=== PATIENT | male | born 1955 | race Caucasian/White ===

== ENCOUNTER → 2017-05-30 | Day surgery (SDC) | payer OTHER ==
[~2017-05-30] VITALS: Ht 172.7 cm; Wt 84.1 kg
[~2017-05-30] MED LIST: ACETAMINOPHEN/HYDROcodone 325 MG/5 MG TAB PO PRN; ALEV220T14 PO; ARTHRITIS MED PO; BUPIVACAINE/EPINEPHRINE 0.25% PF 10 ML VIAL INFIL ONE; CHLORHEXIDINE GLUCONATE 2 % 1 PACK (2 CLOTHS) TOPICAL PRN; CHLORHEXIDINE GLUCONATE 4% SOLN 120 ML BTL TOPICAL SCH; KETOROLAC TROMETHAMINE 60 MG/2 ML (IM) VIAL IM PRN; LACTATED RINGER'S 1000 ML IV PRN; METOPROLOL TARTRATE 25 MG TAB PO PRN; MIDAZOLAM HCL 2 MG/2 ML VIAL ONE; ONDANSETRON HCL 4 MG/2 ML VIAL IV PRN; POVIDONE IODINE 5% (ANTISEPSIS KIT) 4 APPLICATIONS EACH NARE PRN; SODIUM CHLORID 0.9% 500 ML IV PRN; TRIAMCINOLONE ACETONIDE 40 MG/ML VIAL ONE
[2017-05-30 09:59] LABS: HEMATOCRIT 45.7 % (39.0-51.0); HEMOGLOBIN 14.6 GM/DL (13.0-17.0); MEAN CELL VOLUME 87.9 FL (80.0-100.0); MEAN CORPUSCULAR HGB CONC 31.8 % (32.0-36.0); MEAN PLATELET VOLUME 7.8 FL (7.0-11.0); PLATELET COUNT 302 TH/MM3 (150-450); RED CELL DISTRIBUTION WIDTH 14.5 % (11.6-17.2); WHITE BLOOD COUNT 4.9 TH/MM3 (4.0-11.0)
--- NOTE | 2017-05-30 12:45 | MP ---
cc: GERMÁN GUTIERREZ M.D. DATE OF OPERATION 05/30/[address] Germán Gutierrez PREOPERATIVE DIAGNOSIS Internal derangement with probable tear of the medial meniscus of the right knee joint. POSTOPERATIVE DIAGNOSIS Internal derangement with probable tear of the medial meniscus of the right knee joint. PROCEDURE 1. Chondroplasty medial and lateral femoral condyle. 2. Subtotal trimming meniscectomy anterior horn medial meniscus. DETAILS OF PROCEDURE The patient was placed on the operating room table in the supine position. Adequate general anesthesia was administered by Dr. Casiano the anesthesiologist. The patient's right knee was prepped and draped in the usual sterile fashion. An anterolateral portal was used for introduction of the scope and inflow cannulas and the joint was distended with lactated Ringer's solution. A medial portal was used for instrumentation. A systematic examination of the knee joint did reveal fraying of the anterior horn of the medial meniscus and there did appear to be a very peripheral detachment of a small portion with synovitis overlying that area. This was excised with a medial meniscal resector and the anterior horn trimmed. The posterior horn was only partially visualized and did appear to be far posterior and did not appear to be torn or unstable. The anterior and posterior cruciate ligaments were intact. The lateral compartment was entered and there did appear to be some superficial osteochondral lesions involving the lateral femoral condyle and some slight fraying of the lateral meniscus with no tear. The meniscus was debrided and shaved along with the osteochondral lesion of the lateral femoral condyle. The joint was then thoroughly irrigated and aspirated. All instruments were removed and the two stab wounds were closed with 3-0 nylon. An intraarticular injection through the lateral portal was carried out with 10 cc of 0.25% Marcaine with epinephrine. Xeroform gauze was applied over both wounds and a bulky dressing applied over this. The tourniquet was deflated after 16 minutes duration and examination of the toes revealed adequate return of circulation. Sponge count, needle counts and instrument counts were reported correct x2. The estimated blood loss was nil. The patient tolerated the procedure well and went to the recovery room in satisfactory condition. MD CAROL Salmon/MARIE /12:05 PM 12:10 PM
[2017-05-30 13:20] VITALS: BP 147/91; PULSE 69; RESP 16; TEMP 98.1; O2SAT 97
--- NOTE | 2017-05-30 21:19 | EKG ---
Date Performed: 05/30/2017 Time Performed: 10:00:33 PTAGE: 61 years EKG: Sinus rhythm NORMAL ECG NO PREVIOUS TRACING DOCTOR: Ciro Velazquez Interpretating Date/Time 05/30/2017 21:17:39
== END | disposition home or self-care (01) ==
LOC: PHSDC 08:03
PROVIDERS: ATTEND Orthopaedic Surgery
DX: M23.211 Derangement of anterior horn of medial meniscus due to old tear or injury, right knee (principal); Z01.818 Encounter for other preprocedural examination; Z01.810 Encounter for preprocedural cardiovascular examination
CPT/HCPCS: 01400; 29881; 36415; 85027; 93005; E0113; J2250; J7120; J3301